=== PATIENT | female | born 1975 | race African-American/Black ===

== ENCOUNTER 2019-05-09 01:03 | Emergency (ER) | payer MEDICAID ==
[~2019-05-09] VITALS: Ht 165.1 cm; Wt 78.0 kg
[2019-05-09 01:07] VITALS: BP 126/78
== END 2019-05-09 04:46 | disposition left against medical advice (07) ==
LOC: ER 01:03
DX: M79.18 Myalgia, other site (principal)
CPT/HCPCS: 99283